=== PATIENT | female | born 1970 | race Caucasian/White ===

== ENCOUNTER 2017-09-06 18:56 | Emergency (ER) | payer BC ==
[~2017-09-06] VITALS: Ht 157.5 cm; Wt 49.4 kg
[2017-09-06] MEDS ORDERED: MONTELUKAST SOD 10 MG TABLET (19:17)
--- NOTE | 2017-09-06 19:25 | NUR ---
PT IN BED. PT IS AAOX4. PT IS PRESENTING TO ED WITH C/O CHEST PAIN AND DIFFICULTY BREATHING. UPON INITIAL IMPRESSION PT APPEARS ANXIOUS. LUNG SOUNDS ARE CLEAR. BREATH SOUNDS ARE EVEN AND UNLABORED. ABDOMEN IN FLAT AND NON-TENDER. BOWEL SOUNDS PRESENT IN ALL 4 QUADRANTS. CAP REFILL <3 SECONDS IN ALL EXTREMITIES.
[2017-09-06] MEDS ORDERED: NITROGLYCERIN OINT 1 GM PACKET TP ONE ×2 (19:30→19:49)
[2017-09-06] MEDS ORDERED: ACETAMINOPHEN ES 500 MG TABLET PO ONE (19:30)
[2017-09-06] MEDS ORDERED: ASPIRIN 81 MG TAB.CHEW PO ONE (19:30)
[2017-09-06 19:42] LABS: BASOPHILS % (AUTO) 0.8 % (0.0-2.0); EOSINOPHILS # (AUTO) 0.1 K/uL (0.0-0.7); EOSINOPHILS % (AUTO) 1.7 % (0.0-7.0); HEMATOCRIT 42.8 % (31.2-41.9); HEMOGLOBIN 14.7 g/dL (10.9-14.3); LYMPHOCYTES # (AUTO) 1.8 K/uL (20.0-40.0); LYMPHOCYTES % (AUTO) 37.4 % (20.5-51.5); MEAN CORPUSCULAR HEMOGLOBIN 31.3 uug (24.7-32.8); MEAN CORPUSCULAR HGB CONC 34 g/dL (32.3-35.6); MEAN CORPUSCULAR VOLUME 91.2 fL (75.5-95.3); MONOCYTES # (AUTO) 0.2 K/uL (2.0-10.0); MONOCYTES % (AUTO) 4.8 % (0.0-11.0); NEUTROPHILS # (AUTO) 2.6 K/uL (1.8-8.9); NEUTROPHILS % (AUTO) 55.3 % (38.5-71.5); PLATELET COUNT (AUTO) 195 K/uL (179-408); WHITE BLOOD COUNT (AUTO) 4.8 K/uL (3.8-11.8)
[2017-09-06] MEDS ORDERED: ACETAMINOPHEN ES 500 MG TABLET ONE (19:49)
[2017-09-06] MEDS ORDERED: ASPIRIN 81 MG TAB.CHEW ONE (19:49)
[2017-09-06 19:50] LABS: CREATININE 0.9 mg/dL (0.6-1.3); POTASSIUM 3.1 mmol/L (3.5-5.1)
[2017-09-06 20:02] LABS: BILIRUBIN,DIRECT 0.1 mg/dL (0.0-0.2); BILIRUBIN,TOTAL 0.5 mg/dL (0.2-1.0); TOTAL PROTEIN, SERUM 7.7 g/dL (6.4-8.2)
--- NOTE | 2017-09-06 21:35 | NUR ---
PT IN BED RESTING QUIETLY. PT IS AAOX4. NO SIGNS OF DISTRESS WITNESSED AT THIS TIME.
--- NOTE | 2017-09-06 23:40 | NUR ---
Patient discharged to home in stable conditon. Patient reported being free of chest pain prior to discharge. Written and verbal after care instructions given. Patient verbalizes understanding of instructions. Patient able to ambulate unassisted with a steady gait. Patient left with all personal belongings.
[2017-09-06 23:58] VITALS: BP 83/42
== END 2017-09-06 23:40 | disposition home or self-care (01) ==
LOC: ER 18:57
DX: R07.89 Other chest pain (principal); Z79.899 Other long term (current) drug therapy
CPT/HCPCS: 36415; 70030-TC; 71045; 85025; 93005; A4663; A9150